=== PATIENT | female | born 1965 | race Asian ===

== ENCOUNTER → 2019-01-03 13:36 | Outpatient (CLI) | payer OTHER, SELFPAY ==
[2019-01-03 14:35] LABS: Add Manual Diff / Slide Review NO; Basophils Absolute Auto 100 /uL (0-100); Basophils Percent Auto 1.4 % (0-2); Eosinophils Absolute Auto 100 /uL (0-450); Eosinophils Percent Auto 1.7 % (2-4); Hemoglobin 13.9 g/dL (12.0-16.0); Lymphocytes Absolute Auto 1900 /uL (1100-4500); Lymphocytes Percent Auto 29.2 % (25-40); Mean Corpuscular Volume 85.4 fL (80-100); Monocytes Absolute Auto 400 /uL (0-900); Monocytes Percent Auto 6.9 % (3-14); Neutrophils Absolute Auto 3900 /uL (1500-7000); Neutrophils Percent Auto 60.8 % (50-75); Platelet Count 223 X10^3/uL (150-400); Red Cell Distribution Width 12.8 % (11.6-14.8); White Blood Cell Count 6.4 X10^3/uL (4.5-11.0)
[2019-01-03 14:50] LABS: Alanine Aminotransferase 21 IU/L (9-52); Albumin 4.5 g/dL (3.5-5.0); Albumin Globulin Ratio 1.4 (1.0-2.8); Alkaline Phosphatase 79 U/L (38-126); Aspartate Aminotransferase 21 IU/L (14-36); Bilirubin Total 0.7 mg/dL (0.2-1.3); Blood Urea Nitrogen 13 mg/dL (7-17); Calcium 9.6 mg/dL (8.4-10.2); Carbon Dioxide 29 mmol/L (22-32); Chloride 103 mmol/L (98-107); Cholesterol 130 mg/dL (140-199); Estimated Glomerular Filt Rate > 60.0 mL/min (>60); Globulin 3.3 g/dL (1.7-4.1); Glucose 101 mg/dL (70-100); HDL Cholesterol 44 mg/dL (40-60); HEMOLYSIS < 15 (0-50); LDL Cholesterol Calculated 73 mg/dL (<100); Potassium 3.8 mmol/L (3.4-5.1); Sodium 141 mmol/L (137-145); Total Protein 7.8 g/dL (6.3-8.2); Triglycerides 63 mg/dL (35-150)
[2019-01-03 16:19] LABS: Thyroid Stimulating Hormone 0.69 uIU/mL (0.47-4.68)
== END ==
PROVIDERS: PCP Family Medicine; Visit Provider Family Medicine
DX: Z00.00 Encounter for general adult medical examination without abnormal findings (principal); E78.5 Hyperlipidemia, unspecified
CPT/HCPCS: 36415; 80053; 80061; 84443; 85025

== ENCOUNTER → 2020-04-29 14:06 | Outpatient (CLI) | payer OTHER, SELFPAY ==
[2020-04-29 14:43] LABS: Add Manual Diff / Slide Review NO; Basophils Absolute Auto 100 /uL (0-100); Basophils Percent Auto 0.7 % (0-2); Eosinophils Absolute Auto 100 /uL (0-450); Eosinophils Percent Auto 1.6 % (2-4); Hematocrit 42.2 % (36-46); Lymphocytes Absolute Auto 2200 /uL (1100-4500); Lymphocytes Percent Auto 29.7 % (25-40); Mean Corpuscular HGB Conc 33.2 % (30-36); Mean Corpuscular Hemoglobin 28.6 PG (26-34); Monocytes Absolute Auto 600 /uL (0-900); Monocytes Percent Auto 7.6 % (3-14); Neutrophils Absolute Auto 4500 /uL (1500-7000); Neutrophils Percent Auto 60.4 % (50-75); Platelet Count 247 X10^3/uL (150-400); Red Blood Cell Count 4.91 X10^6/uL (4.0-5.2); Red Cell Distribution Width 12.8 % (11.6-14.8); White Blood Cell Count 7.4 X10^3/uL (4.5-11.0)
[2020-04-29 15:20] LABS: Alanine Aminotransferase 19 IU/L (<35); Albumin 4.4 g/dL (3.5-5.0); Albumin Globulin Ratio 1.5 (1.0-2.8); Alkaline Phosphatase 68 U/L (38-126); Aspartate Aminotransferase 20 IU/L (14-36); BUN Creatinine Ratio 21.7 (6-22); Bilirubin Total 0.7 mg/dL (0.2-1.3); Blood Urea Nitrogen 13 mg/dL (7-17); Calcium 9.5 mg/dL (8.4-10.2); Carbon Dioxide 34 mmol/L (22-32); Chloride 105 mmol/L (98-107); Cholesterol 122 mg/dL (140-199); Estimated Glomerular Filt Rate > 60.0 mL/min (>60); Glucose 102 mg/dL (70-100); HDL Cholesterol 43 mg/dL (40-60); HEMOLYSIS < 15 (0-50); LDL Cholesterol Calculated 63 mg/dL (<100); Potassium 5.2 mmol/L (3.4-5.1); Sodium 142 mmol/L (137-145); Total Protein 7.4 g/dL (6.3-8.2); Triglycerides 79 mg/dL (35-150)
[2020-04-29 15:48] LABS: Thyroid Stimulating Hormone 0.611 uIU/mL (0.47-4.68)
== END ==
PROVIDERS: PCP Family Medicine; Referring Provider Family Medicine; Visit Provider Family Medicine
DX: Z00.00 Encounter for general adult medical examination without abnormal findings (principal); Z13.29 Encounter for screening for other suspected endocrine disorder; E78.2 Mixed hyperlipidemia
CPT/HCPCS: 36415; 80053; 80061; 84443; 85025

== ENCOUNTER → 2020-10-22 16:06 | Outpatient (CLI) | payer OTHER, SELFPAY ==
[2020-10-22 16:24] LABS: Add Manual Diff / Slide Review NO; Basophils Absolute Auto 100 /uL (0-100); Basophils Percent Auto 0.9 % (0-2); Eosinophils Absolute Auto 200 /uL (0-450); Eosinophils Percent Auto 1.9 % (2-4); Hematocrit 42.7 % (36-46); Lymphocytes Absolute Auto 2400 /uL (1100-4500); Lymphocytes Percent Auto 28.5 % (25-40); Mean Corpuscular HGB Conc 32.8 % (30-36); Mean Corpuscular Hemoglobin 28.2 PG (26-34); Mean Corpuscular Volume 85.8 fL (80-100); Monocytes Absolute Auto 600 /uL (0-900); Monocytes Percent Auto 7.3 % (3-14); Neutrophils Absolute Auto 5200 /uL (1500-7000); Neutrophils Percent Auto 61.4 % (50-75); Platelet Count 246 X10^3/uL (150-400); Red Blood Cell Count 4.97 X10^6/uL (4.0-5.2); Red Cell Distribution Width 13.2 % (11.6-14.8); White Blood Cell Count 8.5 X10^3/uL (4.5-11.0)
[2020-10-22 16:35] LABS: Alanine Aminotransferase 17 IU/L (<35); Albumin 4.7 g/dL (3.5-5.0); Albumin Globulin Ratio 1.3 (1.0-2.8); Alkaline Phosphatase 70 U/L (38-126); Aspartate Aminotransferase 23 IU/L (14-36); BUN Creatinine Ratio 20.7 (6-22); Bilirubin Total 0.4 mg/dL (0.2-1.3); Bilirubin Unconjugated 0.4 mg/dL (0.0-1.1); Blood Urea Nitrogen 12 mg/dL (7-17); Calcium 9.7 mg/dL (8.4-10.2); Carbon Dioxide 31 mmol/L (22-32); Chloride 105 mmol/L (98-107); Estimated Glomerular Filt Rate > 60.0 mL/min (>60); Globulin 3.5 g/dL (1.7-4.1); Glucose 99 mg/dL (70-100); HEMOLYSIS < 15 (0-50); Potassium 4.2 mmol/L (3.4-5.1); Sodium 143 mmol/L (137-145); Total Protein 8.2 g/dL (6.3-8.2)
== END ==
PROVIDERS: Registered Nurse; PCP Family Medicine; Referring Provider Family Medicine; Visit Provider Family Medicine
DX: R10.9 Unspecified abdominal pain (principal)
CPT/HCPCS: 36415; 80053; 80076; 85025

== ENCOUNTER → 2020-11-01 13:37 | Outpatient (CLI) | payer OTHER, SELFPAY ==
--- NOTE | 2020-11-01 | DI.US.S_ITS ---
PROCEDURE: US ABDOMEN LIMITED INDICATIONS: RUQ PAIN TECHNIQUE: Real-time focused scanning was performed of the abdomen, with image documentation. COMPARISON: [facility], CT, IVP (ABD & PEL WWO CONTRAST), 07/11/2012, 12:50. FINDINGS: The liver is normal in size and demonstrates normal echogenicity. The main portal vein demonstrates normal size and demonstrates normal appearing, hepatopetal flow. There is a 6 mm hyperechoic focus seen, which likely relates to a hemangioma, particularly given the prior CT appearance. No findings of gallstones or sludge are seen. The gallbladder wall is not thickened, measuring 3 mm or less. No specific pericholecystic fluid is seen. The sonographic Osei sign is negative. There is no biliary dilatation, the common bile duct measures 3 mm. No significant pancreatic abnormality is seen on these images. IMPRESSION: The gallbladder demonstrates a normal sonographic appearance. No biliary dilatation is seen. 6 mm presumed liver hemangioma seen. Dictated by: Jian Arzola M.D. on 11/01/2020 at 13:04 Approved by: Jian Arzola M.D. on 11/01/2020 at 13:07
== END ==
PROVIDERS: PCP Family Medicine; Referring Provider Family Medicine; Visit Provider Family Medicine
DX: R10.11 Right upper quadrant pain (principal)
CPT/HCPCS: 76705

== ENCOUNTER → 2021-08-22 16:34 | Outpatient (CLI) | payer OTHER, SELFPAY ==
--- NOTE | 2021-08-22 16:36 | DI.RAD.S_ITS ---
PROCEDURE: XR KNEE LT 3V INDICATIONS: L knee pain TECHNIQUE: 3 views of the knee were acquired. COMPARISON: None. FINDINGS: Bones: No fractures or dislocations. No suspicious bony lesions. Age-appropriate bony degenerative changes are seen. On the sunrise view, there is moderate patellofemoral joint space narrowing seen. Osteophyte formation can be seen along the margins of the patella. Soft tissues: No joint effusion. No suspicious soft tissue calcifications. IMPRESSION: Degenerative changes are seen, which are worst involving the patellofemoral joint. If it would be helpful for clinical management decision making, please consider a dedicated, scheduled knee MRI for further evaluation (assuming that there is no contraindication). Dictated by: Jian Arzola M.D. on 08/22/2021 at 15:52 Approved by: Jian Arzola M.D. on 08/22/2021 at 15:53
== END ==
PROVIDERS: PCP Family Medicine; Referring Provider Physician Assistant; Visit Provider Physician Assistant
DX: M25.562 Pain in left knee (principal)
CPT/HCPCS: 73562

== ENCOUNTER 2022-09-12 16:38 | Emergency (ER) | payer OTHER, SELFPAY ==
[2022-09-12 16:55] VITALS: BP 172/93; PULSE 90; RESP 16; TEMP 36.6; O2SAT 100; BMI 26.2
[2022-09-12 17:42] LABS: Amorphous Sediment Urine 1+; Bacteria Urine Many (>30); Culture Indicated Urine Specimen Cultured; Mucus Urine 1+ (Negative); RBC Urine 1-5/HPF (0-5/HPF); Squamous Epithelial Cell Urine 1-5 /HPF (0-5/HPF); WBC Urine 10-30/HPF (0-5/HPF)
--- NOTE | 2022-09-12 18:31 | ED_ITS ---
HPI - General Adult General Chief complaint: Abdominal Pain Stated complaint: sent by MD for fever x 5 days Time Seen by Provider: 09/12/22 16:44 Source: patient Mode of arrival: Ambulatory Limitations: no limitations History of Present Illness HPI narrative: Patient is a 57-year-old female who for the past 5 days has had fevers. She states she has taken antipyretic medications which improves her symptoms but th en they returned. She is having urinary frequency. She denies chest pain. No shortness of breath. No back pain. No abdominal pain. No change in bowel habits. No skin rashes. Neck pain. No sore throat. Has taken Tylenol and ibuprofen. Was sent by her primary doctor for evaluation. Related Data Previous Rx's Medication Instructions Recorded atorvastatin 20 mg tablet 20 mg PO BEDTIME #90 tabs 07/26/22 cephalexin 500 mg capsule 500 mg PO BID 7 days #14 caps 09/12/22 Allergies Allergy/AdvReac Type Severity Reaction Status Date / Time Sulfa (Sulfonamide Allergy Mild HIVES Verified 07/13/22 15:24 Antibiotics) Review of Systems Review of Systems ROS Unobtainable: All systems reviewed & are unremarkable except as noted in HPI and below Patient History Medical History Gastroesophageal reflux disease (~2020) Left knee pain Preventative health care Surgical History Anesthesia History of breast surgery (~1986) Family History Father Diabetes mellitus History of heart disease Hypertension Mother Stroke Diabetes mellitus Hyperlipidemia Hypertension Brother Diabetes mellitus History of heart disease Brother Diabetes mellitus Sister Diabetes mellitus Sister Diabetes mellitus Social History Smoking Status: Never smoker alcohol intake: current (1 drink per month ) substance use type: does not use Smoking Status: Never smoker alcohol intake frequency: a few times a week Substance Use Type: does not use Exam Initial Vital Signs Initial Vital Signs: Vital Signs Temperature 97.9 F 09/12/22 16:55 Pulse Rate 90 09/12/22 16:55 Respiratory Rate 16 09/12/22 16:55 Blood Pressure 172/93 H 09/12/22 16:55 Pulse Oximetry 100 09/12/22 16:55 Oxygen Delivery Method 09/12/22 16:55 Const General: cooperative HENNC Head: normal to inspection and normocephalic Resp Effort & Inspection: normal respiratory effort Cardio Rate: regular rate GI Inspection: normal to inspection and non-distended Skin General: no rashes or lesions noted Neuro General: patient alert, patient awake and moves all extremities Course Orders Ordered: Discontinued Medications Cephalexin HCl (Cephalexin 250 Mg Capsule) 500 mg PO NOW ONE Stop: 09/12/22 18:33 Last Admin: 09/12/22 18:37 Dose: 500 mg Documented By: YAZMIN Vital Signs Vital signs: Vital Signs - 8 hr 09/12/22 16:55 Temperature 97.9 F Pulse Rate 90 Respiratory Rate 16 Blood Pressure 172/93 H Pulse Oximetry 100 Oxygen Delivery Method Room Air Medical Decision Making Lab Data Labs: Lab Results 09/12/22 Range/Units 17:05 Urine RBC 1-5/hpf (0-5/HPF) Urine WBC 10-30/hpf H (0-5/HPF) Ur Squamous Epith Cells 1-5 /hpf (0-5/HPF) Amorphous Sediment 1+ Urine Bacteria Many (>30) H (None) Urine Mucus 1+ H (Negative) Ur Culture Indicated? Specimen cultured Urine Dip Bedside Urine Glucose 250 mg/dl Bedside Urine Bilirubin - Negative Bedside Urine Ketone - Negative Urine Specific [place] 1.020 Bedside Urine Occult Blood +++ Bedside Urine pH 6.0 Bedside Urine Protein +/- 15 Bedside Urine Urobilinogen - Negative Bedside Urine Nitrite - Negative Bedside Urine Leukocytes - Negative Esterase Point of care testing: Urine Dip Bedside Urine Glucose 250 mg/dl Bedside Urine Bilirubin - Negative Bedside Urine Ketone - Negative Urine Specific [place] 1.020 Bedside Urine Occult Blood +++ Bedside Urine pH 6.0 Bedside Urine Protein +/- 15 Bedside Urine Urobilinogen - Negative Bedside Urine Nitrite - Negative Bedside Urine Leukocytes - Negative Esterase MDM Narrative Medical decision making narrative: Patient is having fevers at home. Urinalysis does show signs of urinary tract infection. I have low suspicion for pyelonephritis based on her presentation. She is not toxic-appearing. Tolerated antibiotics here in the ER. Prescription for antibiotics was sent to the pharmacy of her choice. Considered other potential sources of infection however clinically does not have pneumonia comes cellulitis, upper respiratory infection or an acute surgical intra-abdominal infection such as appendicitis. Will hold on further radiologic studies for now. Discharge patient home with strict return precautions. She expressed understanding and agreement. Discharge Plan Departure Patient Disposition: Home Clinical Impression: Urinary tract infection Instructions: DI for Urinary Tract Infection (UTI) Activity Restrictions/Additional Instructions: I do recommend that you take the antibiotics as directed. The prescription was electronically transmitted to [facility] pharmacy. A urine culture was pending at the time of your discharge and we will contact you if we need to change any antibiotics. Return to the emergency department for any new or worsening symptoms. Prescriptions: New cephalexin 500 mg capsule 500 mg PO BID 7 Days Qty: 14 0RF No Action atorvastatin 20 mg tablet 20 mg PO BEDTIME Qty: 90 1RF Referrals: Dalton Vásquez DO [Primary Care Provider] - Stand Alone Forms: Patient Portal/API
[2022-09-12 18:35] VITALS: PULSE 91; O2SAT 99
[2022-09-12 18:36] VITALS: BP 149/80; PULSE 94; O2SAT 99
[2022-09-12] MEDS: cephALEXin 250 MG CAPSULE 500 MG PO (18:37)
== END 2022-09-12 18:43 | disposition home or self-care (01) ==
PROVIDERS: Emergency Medicine; Emergency Provider Emergency Medicine; PCP Family Medicine
DX: N39.0 Urinary tract infection, site not specified (principal)
CPT/HCPCS: 81003; 81015; 87077; 87086; 87186; 99283

== ENCOUNTER → 2022-09-13 14:55 | Outpatient (CLI) | payer OTHER, SELFPAY ==
[2022-09-13 15:33] LABS: Add Manual Diff / Slide Review NO; Basophils Absolute Auto 100 /uL (0-100); Basophils Percent Auto 0.8 % (0-2); Eosinophils Absolute Auto 100 /uL (0-450); Eosinophils Percent Auto 0.8 % (2-4); Hematocrit 40.7 % (36-46); Hemoglobin 13.4 g/dL (12.0-16.0); Lymphocytes Absolute Auto 2000 /uL (1100-4500); Lymphocytes Percent Auto 19.5 % (25-40); Mean Corpuscular Hemoglobin 28.3 PG (26-34); Mean Corpuscular Volume 85.7 fL (80-100); Monocytes Absolute Auto 1000 /uL (0-900); Monocytes Percent Auto 9.7 % (3-14); Neutrophils Absolute Auto 7200 /uL (1500-7000); Neutrophils Percent Auto 69.2 % (50-75); Platelet Count 262 X10^3/uL (150-400); Red Blood Cell Count 4.74 X10^6/uL (4.0-5.2); Red Cell Distribution Width 12.6 % (11.6-14.8); White Blood Cell Count 10.5 X10^3/uL (4.5-11.0)
== END ==
PROVIDERS: PCP Family Medicine; Referring Provider Family Medicine; Visit Provider Family Medicine
DX: R10.31 Right lower quadrant pain (principal)
CPT/HCPCS: 36415; 85025

== ENCOUNTER → 2022-09-14 15:48 | Outpatient (CLI) | payer OTHER, SELFPAY ==
[2022-09-14 17:21] LABS: Hematocrit 38.9 % (36-46); Hemoglobin 12.8 g/dL (12.0-16.0); Mean Corpuscular HGB Conc 32.9 % (30-36); Mean Corpuscular Hemoglobin 28.1 PG (26-34); Mean Corpuscular Volume 85.5 fL (80-100); Platelet Count 288 X10^3/uL (150-400); Red Blood Cell Count 4.55 X10^6/uL (4.0-5.2)
[2022-09-14 17:45] LABS: Hemoglobin A1C% w Est Avg Glu 6.4 % (4.0-6.0)
[2022-09-14 17:54] LABS: BUN Creatinine Ratio 13.3 (6-22); Blood Urea Nitrogen 11 mg/dL (7-17); Calcium 9.3 mg/dL (8.4-10.2); Carbon Dioxide 28 mmol/L (22-32); Chloride 103 mmol/L (98-107); Estimated Glomerular Filt Rate > 60 mL/min (>60); Glucose 147 mg/dL (70-100); HEMOLYSIS < 15 (0-50); Potassium 3.9 mmol/L (3.4-5.1); Sodium 142 mmol/L (137-145)
== END ==
PROVIDERS: PCP Family Medicine; Referring Provider Nurse Practitioner Family; Visit Provider Nurse Practitioner Family
DX: R81 Glycosuria (principal); N39.0 Urinary tract infection, site not specified
CPT/HCPCS: 36415; 80048; 83036; 85027

== ENCOUNTER → 2022-12-05 14:13 | Outpatient (CLI) | payer OTHER, SELFPAY ==
--- NOTE | 2022-12-05 14:14 | DI.MG.S_ITS ---
BILATERAL DIGITAL SCREENING MAMMOGRAM 3D/2D WITH CAD: 12/05/2022 CLINICAL: Routine screening. Family history of breast cancer. Comparison is made to exams dated: 06/28/2015 mammogram - [facility] and 03/03/2011 mammogram - [facility]. Both breasts are heterogeneously dense, which may obscure small masses (category c / 51-75% glandular tissue). Current study was also evaluated with a Computer Aided Detection (CAD) system. No significant masses, calcifications, or other findings are seen in either breast. There has been no significant interval change. IMPRESSION: NEGATIVE There is no mammographic evidence of malignancy. A 1 year screening mammogram is recommended. Based on the Tyrer Cuzick model (a risk assessment model) the patient's lifetime risk is 11.1% and her 10 year risk is 3.9%. According to the ACR, ACS, and NCCN guidelines, an annual breast MRI exam along with mammogram is recommended if the patient's lifetime risk is 20% or greater. This exam was interpreted at Station ID: [id number]. NOTE: For mammograms, a report in lay terms will be sent to the patient. Approximately 15% of breast malignancies will not be visualized mammographically. In the management of a palpable breast mass, a negative mammogram must not discourage biopsy of a clinically suspicious lesion. Electronically Signed By: Yuly galindo/dasha:12/05/2022 16:50:53 letter sent: Normal Exam ACR BI-RADS Category 1: Negative [id number]
== END ==
PROVIDERS: PCP Family Medicine; Referring Provider Family Medicine; Visit Provider Family Medicine
DX: Z12.31 Encounter for screening mammogram for malignant neoplasm of breast (principal); Z80.3 Family history of malignant neoplasm of breast
CPT/HCPCS: 77063; 77067

== ENCOUNTER → 2022-12-20 13:24 | Outpatient (CLI) | payer OTHER, SELFPAY ==
[2022-12-21 08:13] LABS: Labcorp Hemoglobin (Hb) A1c 6.1 % (4.8-5.6)
== END ==
PROVIDERS: Nurse Practitioner Family; PCP Family Medicine; Referring Provider Family Medicine; Visit Provider Family Medicine
DX: R73.03 Prediabetes (principal)
CPT/HCPCS: 36415; 83036

== ENCOUNTER → 2023-08-28 14:30 | Outpatient (CLI) | payer OTHER, SELFPAY ==
[2023-08-28 15:33] LABS: Alanine Aminotransferase 22 IU/L (<35); Albumin 4.6 g/dL (3.5-5.0); Albumin Globulin Ratio 1.4 (1.0-2.8); Alkaline Phosphatase 81 U/L (38-126); Aspartate Aminotransferase 23 IU/L (14-36); BUN Creatinine Ratio 24.1 (6-22); Bilirubin Total 0.7 mg/dL (0.2-1.3); Blood Urea Nitrogen 13 mg/dL (7-17); Calcium 9.7 mg/dL (8.4-10.2); Carbon Dioxide 28 mmol/L (22-32); Chloride 103 mmol/L (98-107); Cholesterol 154 mg/dL (140-199); Estimated Glomerular Filt Rate > 60 mL/min (>60); Globulin 3.2 g/dL (1.7-4.1); Glucose 108 mg/dL (70-100); HDL Cholesterol 53 mg/dL (40-60); HEMOLYSIS 16 (0-50); LDL Cholesterol Calculated 82 mg/dL (<100); Potassium 4.1 mmol/L (3.4-5.1); Sodium 140 mmol/L (137-145); Total Protein 7.8 g/dL (6.3-8.2); Triglycerides 94 mg/dL (35-150)
== END ==
PROVIDERS: PCP Family Medicine; Referring Provider Family Medicine; Visit Provider Family Medicine
DX: E78.5 Hyperlipidemia, unspecified (principal)
CPT/HCPCS: 36415; 80053; 80061

== ENCOUNTER → 2023-08-28 16:32 | Outpatient (CLI) | payer OTHER, SELFPAY ==
--- NOTE | 2023-08-28 16:36 | DI.RAD.S_ITS ---
PROCEDURE: XR SHOULDER RT MIN 2V INDICATIONS: R shoulder pain TECHNIQUE: 3 views of the shoulder were acquired. COMPARISON: None. FINDINGS: Bones: No fractures or dislocations. Mild acromioclavicular joint osteoarthritic changes are seen with joint space narrowing and subchondral sclerosis. No suspicious bony lesions. Visualized ribs appear intact. Soft tissues: No suspicious soft tissue calcifications. IMPRESSION: Mild acromioclavicular joint osteoarthritis. No shoulder fracture or dislocation. No gross soft tissue abnormalities. Dictated by: Tony Romero M.D. on 08/28/2023 at 16:59 Approved by: Tony Romero M.D. on 08/28/2023 at 17:00
== END ==
LOC: RAD 16:33
PROVIDERS: PCP Family Medicine; Referring Provider Family Medicine; Visit Provider Family Medicine
DX: M75.81 Other shoulder lesions, right shoulder (principal); M19.011 Primary osteoarthritis, right shoulder
CPT/HCPCS: 73030

== ENCOUNTER 2023-09-27 15:21 | Observation (INO) | payer OTHER, SELFPAY ==
[2023-09-27 15:27] VITALS: BP 184/91; PULSE 74; RESP 18; TEMP 36.9; O2SAT 99; BMI 25.7
[2023-09-27 16:53] LABS: Bacteria Urine Many (>30); RBC Urine 0-1/HPF (0-5/HPF); Squamous Epithelial Cell Urine 5-10 /HPF (0-5/HPF); Urine Volume 10mL (spun); WBC Urine 5-10/HPF (0-5/HPF)
[2023-09-27 16:54] LABS: Amorphous Sediment Urine 3+; Culture Indicated Urine Specimen Cultured
[2023-09-27 16:57] LABS: Add Manual Diff / Slide Review NO; Basophils Absolute Auto 100 /uL (0-100); Basophils Percent Auto 0.9 % (0-2); Eosinophils Absolute Auto 100 /uL (0-450); Eosinophils Percent Auto 1.3 % (2-4); Hematocrit 42.3 % (36-46); Hemoglobin 14.1 g/dL (12.0-16.0); Lymphocytes Absolute Auto 2000 /uL (1100-4500); Lymphocytes Percent Auto 21.8 % (25-40); Mean Corpuscular HGB Conc 33.4 % (30-36); Mean Corpuscular Hemoglobin 28.6 PG (26-34); Mean Corpuscular Volume 85.6 fL (80-100); Monocytes Absolute Auto 500 /uL (0-900); Monocytes Percent Auto 5.4 % (3-14); Neutrophils Absolute Auto 6500 /uL (1500-7000); Neutrophils Percent Auto 70.6 % (50-75); Platelet Count 263 X10^3/uL (150-400); Red Blood Cell Count 4.94 X10^6/uL (4.0-5.2); Red Cell Distribution Width 13.3 % (11.6-14.8); White Blood Cell Count 9.2 X10^3/uL (4.5-11.0)
--- NOTE | 2023-09-27 17:05 | DI.CT.S_ITS ---
PROCEDURE: CT ABDOMEN PELVIS W CON INDICATIONS: Abd pain zainab-umb and RLQ tenderness TECHNIQUE: After the administration of intravenous contrast, axial sections acquired from the lung bases to the pubic symphysis. Coronal and sagittal reformats were performed. For radiation dose reduction, the following was used: automated exposure control, adjustment of mA and/or kV according to patient size. COMPARISON: None. FINDINGS: Image quality: Diagnostic Lower chest: Unremarkable. Mildly patulous distal esophagus. Normal heart size. Liver: Unremarkable Gallbladder and biliary system: Unremarkable, nondilated Pancreas: Suspected fatty cleft at the tail and body, no discrete lesion. No ductal dilation. Spleen: Nonenlarged Adrenals: No discrete nodule over 1 cm. There may be small nodular thickening. Kidneys: Subcentimeter lesions are too small to characterize, possibly cysts. No hydronephrosis. Vessels and lymph nodes: There are prominent pelvic veins. The main portal vein is patent. No abdominal aortic aneurysm or pathologic lymph nodes by size criteria. Bowel and peritoneum: No evidence of small bowel obstruction. No drainable abscess or pathologic ascites. There are few colonic diverticula. Moderately distended mid and distal appendix. Body wall: Unremarkable Pelvis: Prominent pelvic veins. Reproductive organs are not well evaluated on limited CT evaluation, no gross abnormality. Bladder is unremarkable. Bones: No acute or suspicious osseous finding. There are degenerative changes. IMPRESSION: Acute appendicitis. Prominent pelvic veins can be seen with pelvic congestion. No abscess. Other findings above. Dictated by: Marcin Marion M.D. on 09/27/2023 at 18:36 Approved by: Marcin Marion M.D. on 09/27/2023 at 18:40
--- NOTE | 2023-09-27 17:07 | ED.ABDPAIN ---
HPI - Abdominal Pain <Miesha Diaz PA-C - Last Filed: 09/27/23 20:00> General Chief Complaint: Abdominal Pain Stated Complaint: abd pain Time Seen by Provider: 09/27/23 16:47 Source: patient Mode of arrival: Ambulatory History of Present Illness HPI narrative: This is a 58-year-old woman with history of GERD and hyperlipidemia, Bain's esophagus, who works nights who says that she started having abdominal pain this morning around 8:00 a.m. she describes it as an 8/10 generalized constant aching pain around her belly button but also feels it elsewhere in her abdomen. She states she has had pain similar to this though not so painful previously when she was traveling internationally but took an omeprazole which improved it. She does have a history of GERD but has not had pain this bad before or in this location before. She states she has been having a little bit of issues with constipation recently but yesterday evening had a normal bowel movement. Denies diarrhea or vomiting she has been having some nausea and has reduced appetite. She denies fevers, chills, chest pain back pain, dysuria or any other symptoms. Related Data Home Medications Medication Instructions Recorded Confirmed meloxicam 15 mg tablet 15 mg PO DAILY PRN Pain (Scale 09/27/23 09/27/23 Score 1-3) Previous Rx's Medication Instructions Recorded atorvastatin 20 mg tablet 20 mg PO BEDTIME #90 tabs 09/17/23 Allergies Allergy/AdvReac Type Severity Reaction Status Date / Time Sulfa (Sulfonamide Allergy Mild HIVES Verified 09/17/23 15:54 Antibiotics) Review of Systems <Miesha Diaz PA-C - Last Filed: 09/27/23 20:00> Review of Systems Narrative: See HPI Patient History <Miesha Diaz PA-C - Last Filed: 09/27/23 20:00> Medical History Adhesive capsulitis of right shoulder Prediabetes Right rotator cuff tendinitis Right tennis elbow Left knee pain Preventative health care Gastroesophageal reflux disease (~2020) Surgical History Anesthesia History of breast surgery (~1986) Family History Father Diabetes mellitus History of heart disease Hypertension Mother Stroke Diabetes mellitus Hyperlipidemia Hypertension Brother Diabetes mellitus History of heart disease Brother Diabetes mellitus Sister Diabetes mellitus Sister Diabetes mellitus Social History household members: spouse and children Smoking Status: Never smoker alcohol intake: current substance use type: does not use Smoking Status: Never smoker alcohol intake frequency: a few times a week Substance Use Type: does not use Exam <Miesha Diaz PA-C - Last Filed: 09/27/23 20:00> Narrative Exam Narrative: GENERAL: [58] year old patient appears stated age. Well-developed patient, in mild distress. HEAD: Atraumatic. Normocephalic. EYES: Pupils equal round and reactive. Extraocular motions intact. No scleral icterus. No injection or drainage. ENT: Nose without bleeding, purulent drainage. Airway patent. NECK: Trachea midline. CARDIOVASCULAR: Regular rate and rhythm without murmurs, gallops, or rubs. RESPIRATORY: Clear to auscultation. Breath sounds equal bilaterally. No wheezes, rales, or rhonchi. GASTROINTESTINAL: Abdomen soft, there is [id number] generalized tenderness patient has positive Rovsing sign and positive McBurney's point tenderness, positive obturator sign and positive mild pain with percussion over right lower quadrant and periumbilical region. Otherwise Non-tender, nondistended. EXTREMITIES: No edema or joint tenderness. BACK: Nontender without deformity or crepitance. No flank tenderness. NEURO: AOx3. SKIN: No rash or erythema of visible areas Initial Vital Signs Initial Vital Signs: Vital Signs Temperature 98.4 F 09/27/23 15:27 Pulse Rate 74 09/27/23 15:27 Respiratory Rate 18 09/27/23 15:27 Blood Pressure 184/91 H 09/27/23 15:27 Pulse Oximetry 99 09/27/23 15:27 Oxygen Delivery Method Room Air 09/27/23 15:27 <Isabella Anand MD - Last Filed: 09/28/23 04:51> Initial Vital Signs Initial Vital Signs: Vital Signs Temperature 98.4 F 09/27/23 15:27 Pulse Rate 74 09/27/23 15:27 Respiratory Rate 18 09/27/23 15:27 Blood Pressure 184/91 H 09/27/23 15:27 Pulse Oximetry 99 09/27/23 15:27 Oxygen Delivery Method Room Air 09/27/23 15:27 Course <Miesha Diaz PA-C - Last Filed: 09/27/23 20:00> Course Course Narrative: Dr. Mcnally, on-call surgeon called back and accepts the patient under observation. 1956 Decision to Admit Date: 09/27/23 Decision to Admit time: 18:45 Orders Ordered: ED Orders 09/27/23 20:06 Education, smoking cessation ONGOING Acetaminophen (Acetaminophen 325 Mg Tablet) 650 mg PO Q6H PRN PRN Reason: Fever/Mild Pain (1-3) Hydromorphone HCl (Hydromorphone 0.5 Mg Inj) 0.5 mg IV Q2H PRN PRN Reason: Pain, Severe (7-10) Last Admin: 09/27/23 22:58 Dose: 0.5 mg Documented By: Dextrose/Sodium Chloride (Dextrose 5%-0.45% Ns) 1,000 mls @ 100 mls/hr IV CONT DARIUS Last Admin: 09/27/23 23:02 Dose: 100 mls/hr Documented By: Piperacillin Sod/Tazobactam (Sod 3.375 gm/ Sodium Chloride) 100 mls @ 25 mls/hr IV Q8H DARIUS Stop: 09/28/23 06:59 Last Admin: 09/28/23 04:20 Dose: 25 mls/hr Documented By: Ibuprofen (Ibuprofen 600 Mg Tablet) 600 mg PO Q6H PRN PRN Reason: Fever/Mild Pain (1-3) Naloxone HCl (Naloxone 0.4 Mg/Ml Vial) 0.2 mg IV Q2MIN PRN PRN Reason: Opiate Reversal Ondansetron HCl (Ondansetron 4 Mg/2 Ml Inj) 4 mg IV NOW PRN PRN Reason: Nausea And Vomiting Ondansetron HCl (Ondansetron 4 Mg Odt) 4 mg PO NOW PRN PRN Reason: Nausea And Vomiting Oxycodone HCl (Oxycodone Ir 5 Mg Tablet) 5 mg PO Q3H PRN PRN Reason: Pain, Moderate (4-6) Discontinued Medications Hydromorphone HCl (Hydromorphone 0.5 Mg Inj) 0.2 mg IV NOW ONE Stop: 09/27/23 17:06 Last Admin: 09/27/23 17:30 Dose: 0.2 mg Documented By: MURIEL Piperacillin Sod/Tazobactam (Sod 4.5 gm/ Sodium Chloride) 100 mls @ 200 mls/hr IV NOW ONE Stop: 09/27/23 18:57 Last Infusion: 09/27/23 20:00 Dose: Infused Documented By: Admin: 09/27/23 19:24 Dose: 200 mls/hr Documented By: MURIEL Pantoprazole Sodium (Pantoprazole 40 Mg Vial) 40 mg IV NOW ONE Stop: 09/27/23 18:40 Last Admin: 09/27/23 18:45 Dose: 40 mg Documented By: MURIEL Vital Signs Vital signs: Vital Signs - 8 hr 09/27/23 15:27 09/27/23 18:32 Temperature 98.4 F 98.1 F Pulse Rate 74 62 Respiratory Rate 18 Blood Pressure 184/91 H 160/84 H Pulse Oximetry 99 99 Oxygen Delivery Method Room Air Room Air <Isabella Anand MD - Last Filed: 09/28/23 04:51> Orders Ordered: ED Orders 09/27/23 20:06 Education, smoking cessation ONGOING Acetaminophen (Acetaminophen 325 Mg Tablet) 650 mg PO Q6H PRN PRN Reason: Fever/Mild Pain (1-3) Hydromorphone HCl (Hydromorphone 0.5 Mg Inj) 0.5 mg IV Q2H PRN PRN Reason: Pain, Severe (7-10) Last Admin: 09/27/23 22:58 Dose: 0.5 mg Documented By: DANETTE Dextrose/Sodium Chloride (Dextrose 5%-0.45% Ns) 1,000 mls @ 100 mls/hr IV CONT DARIUS Last Admin: 09/27/23 23:02 Dose: 100 mls/hr Documented By: DANETTE Piperacillin Sod/Tazobactam (Sod 3.375 gm/ Sodium Chloride) 100 mls @ 25 mls/hr IV Q8H DARIUS Stop: 09/28/23 06:59 Last Admin: 09/28/23 04:20 Dose: 25 mls/hr Documented By: DANETTE Ibuprofen (Ibuprofen 600 Mg Tablet) 600 mg PO Q6H PRN PRN Reason: Fever/Mild Pain (1-3) Naloxone HCl (Naloxone 0.4 Mg/Ml Vial) 0.2 mg IV Q2MIN PRN PRN Reason: Opiate Reversal Ondansetron HCl (Ondansetron 4 Mg/2 Ml Inj) 4 mg IV NOW PRN PRN Reason: Nausea And Vomiting Ondansetron HCl (Ondansetron 4 Mg Odt) 4 mg PO NOW PRN PRN Reason: Nausea And Vomiting Oxycodone HCl (Oxycodone Ir 5 Mg Tablet) 5 mg PO Q3H PRN PRN Reason: Pain, Moderate (4-6) Discontinued Medications Hydromorphone HCl (Hydromorphone 0.5 Mg Inj) 0.2 mg IV NOW ONE Stop: 09/27/23 17:06 Last Admin: 09/27/23 17:30 Dose: 0.2 mg Documented By: MURIEL Piperacillin Sod/Tazobactam (Sod 4.5 gm/ Sodium Chloride) 100 mls @ 200 mls/hr IV NOW ONE Stop: 09/27/23 18:57 Last Infusion: 09/27/23 20:00 Dose: Infused Documented By: Admin: 09/27/23 19:24 Dose: 200 mls/hr Documented By: MURIEL Pantoprazole Sodium (Pantoprazole 40 Mg Vial) 40 mg IV NOW ONE Stop: 09/27/23 18:40 Last Admin: 09/27/23 18:45 Dose: 40 mg Documented By: MURIEL Vital Signs Vital signs: Vital Signs - 8 hr 09/27/23 15:27 09/27/23 18:32 Temperature 98.4 F 98.1 F Pulse Rate 74 62 Respiratory Rate 18 Blood Pressure 184/91 H 160/84 H Pulse Oximetry 99 99 Oxygen Delivery Method Room Air Room Air MDM - Abdominal Pain <Miesha Diaz PA-C - Last Filed: 09/27/23 20:00> Differential Diagnosis Differential diagnosis: Likely abdominal pain, acute appendicitis, constipation, diverticulitis and pancreatitis Medical Records Attestation: I reviewed the patient's medical records. Lab Data Attestation: I reviewed the patient's lab results. 09/27/23 16:28 09/27/23 16:28 Labs: Lab Results 09/27/23 09/27/23 Range/Units 15:30 16:28 WBC 9.2 (4.5-11.0) X10^3/uL RBC 4.94 (4.0-5.2) X10^6/uL Hgb 14.1 (12.0-16.0) g/dL Hct 42.3 (36-46) % MCV 85.6 (80-100) fL MCH 28.6 (26-34) PG MCHC 33.4 (30-36) % RDW 13.3 (11.6-14.8) % Plt Count 263 (150-400) X10^3/uL Neut % (Auto) 70.6 (50-75) % Lymph % (Auto) 21.8 L (25-40) % [place] % (Auto) 5.4 (3-14) % Eos % (Auto) 1.3 L (2-4) % Baso % (Auto) 0.9 (0-2) % Neut # (Auto) 6500 (5940-5659) /uL Lymph # (Auto) 2000 (5854-7063) /uL [place] # (Auto) 500 (0-900) /uL Eos # (Auto) 100 (0-450) /uL Baso # (Auto) 100 (0-100) /uL Sodium 140 (137-145) mmol/L Potassium 3.7 (3.4-5.1) mmol/L Chloride 106 (98-107) mmol/L Carbon Dioxide 29 (22-32) mmol/L BUN 10 (7-17) mg/dL Creatinine 0.56 (0.52-1.04) mg/dL Estimated GFR > 60 (>60) mL/min BUN/Creatinine Ratio 17.9 (6-22) Glucose 115 H (70-100) mg/dL Calcium 9.3 (8.4-10.2) mg/dL Total Bilirubin 0.8 (0.2-1.3) mg/dL AST 29 (14-36) IU/L ALT 21 (<35) IU/L Alkaline Phosphatase 94 (38-126) U/L Total Protein 8.6 H (6.3-8.2) g/dL Albumin 4.8 (3.5-5.0) g/dL Globulin 3.8 (1.7-4.1) g/dL Albumin/Globulin Ratio 1.3 (1.0-2.8) Lipase 67 (23-300) U/L Urine RBC 0-1/hpf (0-5/HPF) Urine WBC 5-10/hpf H (0-5/HPF) Ur Squamous Epith Cells 5-10 /hpf H (0-5/HPF) Amorphous Sediment 3+ Urine Bacteria Many (>30) H (None) Ur Culture Indicated? Specimen cultured Vol Urine Centrifuged 10ml (spun) Point of care testing: Urine Dip Bedside Urine Glucose Negative Bedside Urine Bilirubin - Negative Bedside Urine Ketone - Negative Urine Specific [place] 1.015 Bedside Urine Occult Blood - Negative Bedside Urine pH 7.5 Bedside Urine Protein +/- 15 Bedside Urine Leukocytes + [address] scan - abdomen/pelvis: My Impression: Agree with Radiology interpretation Radiologist's Impression: [address] [address] [address] Scan Report Signed Patient: Lisa Guzman MR#: [id number] : 1965 Acct:[id number] Age/Sex: 58 / F Date of Service: 09/27/23 Loc: ED Accession Number: [id number] Procedure: CT abdomen pelvis w con Ordering Provider: Miesha Diaz P.A-C PROCEDURE: CT ABDOMEN PELVIS W CON INDICATIONS: Abd pain zainab-umb and RLQ tenderness TECHNIQUE: After the administration of intravenous contrast, axial sections acquired from the lung bases to the pubic symphysis. Coronal and sagittal reformats were performed. For radiation dose reduction, the following was used: automated exposure control, adjustment of mA and/or kV according to patient size. COMPARISON: None. FINDINGS: Image quality: Diagnostic Lower chest: Unremarkable. Mildly patulous distal esophagus. Normal heart size. Liver: Unremarkable Gallbladder and biliary system: Unremarkable, nondilated Pancreas: Suspected fatty cleft at the tail and body, no discrete lesion. No ductal dilation. Spleen: Nonenlarged Adrenals: No discrete nodule over 1 cm. There may be small nodular thickening. Kidneys: Subcentimeter lesions are too small to characterize, possibly cysts. No hydronephrosis. Vessels and lymph nodes: There are prominent pelvic veins. The main portal vein is patent. No abdominal aortic aneurysm or pathologic lymph nodes by size criteria. Bowel and peritoneum: No evidence of small bowel obstruction. No drainable abscess or pathologic ascites. There are few colonic diverticula. Moderately distended mid and distal appendix. Body wall: Unremarkable Pelvis: Prominent pelvic veins. Reproductive organs are not well evaluated on limited CT evaluation, no gross abnormality. Bladder is unremarkable. Bones: No acute or suspicious osseous finding. There are degenerative changes. IMPRESSION: Acute appendicitis. Prominent pelvic veins can be seen with pelvic congestion. No abscess. Other findings above. Dictated by: Marcin Marion M.D. on 09/27/2023 at 18:36 Approved by: Marcin Marion M.D. on 09/27/2023 at 18:40 ECG Data Attestation: I personally reviewed and interpreted this ECG as follows: Interpretation: Normal sinus rhythm no ectopy or ST changes noted. Heart rate 67 Treatment and Disposition Shared decision making:: Shared decision-making was used to determine plan for evaluation today in the emergency department plan for admission. MDM Narrative Medical decision making narrative: This is a 58-year-old woman with a history of hyperlipidemia, Bain's esophagus and GERD who presents to the ER today with concern for abdominal pain 8/10 constant and aching since this morning around 8:00 a.m., periumbilical but on exam patient has positive McBurney's point tenderness and other signs suggestive of appendicitis. Given her history of GERD do also treat with pantoprazole IV and she was given 0.2 mg Dilaudid which improves her pain. She also received Zofran. Labs ordered and based on exam imaging is ordered prior to return of labs. Labs are fairly unremarkable with no leukocytosis however her CT scan does come back positive for a acute appendicitis. Zosyn IV is ordered and orders for NPO after midnight. Surgery is consulted regarding this patient with plan for admission. Surgery accepts the patient under obs. <Isabella Anand MD - Last Filed: 09/28/23 04:51> Lab Data Labs: Lab Results 09/27/23 09/27/23 Range/Units 15:30 16:28 WBC 9.2 (4.5-11.0) X10^3/uL RBC 4.94 (4.0-5.2) X10^6/uL Hgb 14.1 (12.0-16.0) g/dL Hct 42.3 (36-46) % MCV 85.6 (80-100) fL MCH 28.6 (26-34) PG MCHC 33.4 (30-36) % RDW 13.3 (11.6-14.8) % Plt Count 263 (150-400) X10^3/uL Neut % (Auto) 70.6 (50-75) % Lymph % (Auto) 21.8 L (25-40) % Dolores % (Auto) 5.4 (3-14) % Eos % (Auto) 1.3 L (2-4) % Baso % (Auto) 0.9 (0-2) % Neut # (Auto) 6500 (0373-8399) /uL Lymph # (Auto) 2000 (9964-7837) /uL [place] # (Auto) 500 (0-900) /uL Eos # (Auto) 100 (0-450) /uL Baso # (Auto) 100 (0-100) /uL Sodium 140 (137-145) mmol/L Potassium 3.7 (3.4-5.1) mmol/L Chloride 106 (98-107) mmol/L Carbon Dioxide 29 (22-32) mmol/L BUN 10 (7-17) mg/dL Creatinine 0.56 (0.52-1.04) mg/dL Estimated GFR > 60 (>60) mL/min BUN/Creatinine Ratio 17.9 (6-22) Glucose 115 H (70-100) mg/dL Calcium 9.3 (8.4-10.2) mg/dL Total Bilirubin 0.8 (0.2-1.3) mg/dL AST 29 (14-36) IU/L ALT 21 (<35) IU/L Alkaline Phosphatase 94 (38-126) U/L Total Protein 8.6 H (6.3-8.2) g/dL Albumin 4.8 (3.5-5.0) g/dL Globulin 3.8 (1.7-4.1) g/dL Albumin/Globulin Ratio 1.3 (1.0-2.8) Lipase 67 (23-300) U/L Urine RBC 0-1/hpf (0-5/HPF) Urine WBC 5-10/hpf H (0-5/HPF) Ur Squamous Epith Cells 5-10 /hpf H (0-5/HPF) Amorphous Sediment 3+ Urine Bacteria Many (>30) H (None) Ur Culture Indicated? Specimen cultured Vol Urine Centrifuged 10ml (spun) Point of care testing: Urine Dip Bedside Urine Glucose Negative Bedside Urine Bilirubin - Negative Bedside Urine Ketone - Negative Urine Specific [place] 1.015 Bedside Urine Occult Blood - Negative Bedside Urine pH 7.5 Bedside Urine Protein +/- 15 Bedside Urine Leukocytes + 70 Esterase Discharge Plan Departure Patient Disposition: Admitted as Observation Clinical Impression: Acute appendicitis Qualifiers: Acute appendicitis type: unspecified acute appendicitis type Qualified Code(s): K35.80 - Unspecified acute appendicitis Admit Date/Time: 09/27/23 21:24 Admit Provider: Dimas Mcnally ED Sign-out <Isabella Anand MD - Last Filed: 09/28/23 04:51> Cosign ED Attending Cosignature Attestation: I did not see this patient. I was available all times for consultation.
[2023-09-27 17:24] LABS: Alanine Aminotransferase 21 IU/L (<35); Albumin 4.8 g/dL (3.5-5.0); Albumin Globulin Ratio 1.3 (1.0-2.8); Alkaline Phosphatase 94 U/L (38-126); Aspartate Aminotransferase 29 IU/L (14-36); BUN Creatinine Ratio 17.9 (6-22); Bilirubin Total 0.8 mg/dL (0.2-1.3); Blood Urea Nitrogen 10 mg/dL (7-17); Calcium 9.3 mg/dL (8.4-10.2); Carbon Dioxide 29 mmol/L (22-32); Chloride 106 mmol/L (98-107); Estimated Glomerular Filt Rate > 60 mL/min (>60); Globulin 3.8 g/dL (1.7-4.1); Glucose 115 mg/dL (70-100); HEMOLYSIS < 15 (0-50); Lipase 67 U/L (23-300); Potassium 3.7 mmol/L (3.4-5.1); Sodium 140 mmol/L (137-145); Total Protein 8.6 g/dL (6.3-8.2)
[2023-09-27] MEDS: HYDROMORPHONE 0.5 MG INJ 0.2 MG IV (17:30)
[2023-09-27 18:32] VITALS: BP 160/84; PULSE 62; TEMP 36.7; O2SAT 99
[2023-09-27] MEDS: PANTOPRAZOLE 40 MG VIAL IV (18:45)
[2023-09-27] MEDS: PIPERACILLIN/TAZO 4.5 GM in SODIUM CHLORIDE 0.9% 100 ML IV (19:24)
[2023-09-27 22:16] VITALS: BP 151/74; PULSE 78; RESP 22; TEMP 36.7; O2SAT 100
[2023-09-27 22:22] VITALS: BP 166/87; PULSE 80; RESP 16; TEMP 37.6; O2SAT 99
[2023-09-27 22:25] VITALS: BMI 25.7
[2023-09-27] MEDS: HYDROMORPHONE 0.5 MG INJ IV (22:58)
[2023-09-27] MEDS: DEXTROSE 5%-0.45% NS 1,000 ML 100 ML IV (23:02)
[2023-09-28] VITALS (21 sets, daily range): BP systolic 119–154; BP diastolic 54–88; PULSE 54–76; RESP 12–18; TEMP 36.1–37.3; O2SAT 96–100; BMI 25.7
--- NOTE | 2023-09-28 | PATH_ITS ---
[facility] Accession Number: [id number] No. of containers..01 Tissue . 01 Material submitted: . appendix - APPENDIX . 01 Diagnosis: APPENDIX: Acute appendicitis with severe suppurative/fibrinous serositis. Negative for dysplasia and malignancy. MNT 10/02/2023 1524 Local . 01 Electronically signed: . Imelda Mena MD, Pathologist NPI- [id number] . 01 Gross description: . The specimen is received in formalin labeled with the patient's name, , and appendix, and consists of an fay vermiform appendix measuring 6.7 cm in length by 1.4 cm in average diameter with fay, smooth serosa and a small amount of attached adipose. The margin is inked blue, and sectioning reveals a patent lumen averaging 0.3 cm in diameter, with fay intact ward that average 0.4 cm thick with no lesions grossly identified. Washer Repairman sections to include the margin, one-half of the bisected distal tip, and cross-section are submitted in cassette A1. ([id number]) /YUE 10/02/2023 1524 Local . 01 Pathologist provided ICD-10: K35.80 . 01 CPT . 949134 Specimen Comment: A courtesy copy of this report has been sent to [phone] Performed at: 01 [facility] [address] [place] [address], [place], [place] [id number] MD Josias Waddell MD Phone: [phone]
[2023-09-28] MEDS: PIPERACILLIN/TAZO 3.375 GM in SODIUM CHLORIDE 0.9% 100 ML IV (04:20)
[2023-09-28] MEDS: ACETAMINOPHEN 325 MG TABLET 650 MG PO ×2 (08:35→18:08)
[2023-09-28] MEDS: HYDROMORPHONE 0.5 MG INJ IV ×2 (08:36→22:16)
[2023-09-28] MEDS: DEXTROSE 5%-0.45% NS 1,000 ML 100 ML IV (13:14)
--- NOTE | 2023-09-28 14:16 | CM.DANOTE ---
Initial DCP Assessment Visit Note Reviewed EMR and team rounds for status updates. Met with pt/spouse at bedside and introduced self and role, pt was found to be resting quietly in bed, was able to participate in brief assessment questions and express preferences for home d/c. Pt resides independently with spouse in their own home in [place]. Spouse will plan to transport pt home once she's medically cleared for d/c. Payor: [facility] Attending: Dr. Mcnally Pt is a 58 year-old F who presented to the ED yesterday evening by private vehicle after she began experiencing worsening abdominal pain since that morning. She has a PMH of GERD and Bain's Esophagus. CT of Abd./Pelvis in the ED was positive for acute appendicitis. IV Zosyn and fluids were started, pt was made NPO and placed in OBS in preparation for an appendectomy. Surgery is scheduled for later this afternoon, pt will likely stay overnight for post-surgical monitoring. No anticipated home d/c needs are identified at this time, but DCP will continue to follow and assist with any further evolving d/c needs. Discharge Planning/Care Management CM Discharge Assessment Start: 09/28/23 14:05 Freq: Status: Active Protocol: Document 09/28/23 14:05 DPL (Rec: 09/28/23 14:16 DPL [id number]) Discharge Planning Assessment Assigned Straightening Press Operator ELIO Faith Advance Directives? No History Provided By Patient,Medical Record Has Patient been admitted in last 30 No days? Prior Living Arrangements House Household Members spouse,children Type of transporation used prior to Drives own vehicle admit Independent with ADL's Yes Is patient alert and oriented? Yes Caregiver for Another No Comment No identified home d/c needs identified at this time. Barriers to Discharge No Discharge Plan Home Transportation Arrangement Spouse Referrals Initiated None needed Whiteboard Updated in Patient Room with Yes name and ext. # of Straightening Press Operator Review Status In Process Please Provide Date Initial DC 09/28/23 Assessment Was Performed
[2023-09-28] MEDS: LACTATED RINGERS 1,000 ML 42 ML IV (16:51)
--- NOTE | 2023-09-28 17:00 | P.HP_ITS ---
History of Present Illness History of Present Illness Date Patient Seen: 09/28/23 Time Patient Seen: 17:00 Chief complaint: abd pain Narrative: Lisa is a 58-year-old woman with a history of prediabetes who presented to the [facility] Emergency Department with complaint of abdominal pain. Several days of vague abdominal pain which became severe yesterday primarily in the lower abdomen. Associated nausea no emesis or fever. At admission to the emergency department white blood cell count 9 remainder of her laboratory studies are unremarkable. CT abdomen pelvis demonstrate acute appendicitis without abscess. Previous abdominal surgery includes tubal ligation. [facility] Medical History Adhesive capsulitis of right shoulder Prediabetes Right rotator cuff tendinitis Right tennis elbow Left knee pain Preventative health care Gastroesophageal reflux disease (~2020) Surgical History Anesthesia History of breast surgery (~1986) Family History Father Diabetes mellitus History of heart disease Hypertension Mother Stroke Diabetes mellitus Hyperlipidemia Hypertension Brother Diabetes mellitus History of heart disease Brother Diabetes mellitus Sister Diabetes mellitus Sister Diabetes mellitus Social History household members: spouse and children Smoking Status: Never smoker alcohol intake: current substance use type: does not use Meds Home Medications and Allergies Home Medications Medication Instructions Recorded Confirmed Type atorvastatin 20 mg tablet 20 mg PO BEDTIME #90 tabs 09/17/23 09/27/23 Rx meloxicam 15 mg tablet 15 mg PO DAILY PRN Pain (Scale 09/27/23 09/27/23 History Score 1-3) Allergies Allergy/AdvReac Type Severity Reaction Status Date / Time Sulfa (Sulfonamide Allergy Mild HIVES Verified 09/17/23 15:54 Antibiotics) Exam Vital Signs (past 8 hours): - 09/28/23 09:23 09/28/23 11:40 09/28/23 13:16 Temperature 97.8 F Pulse Rate 67 Respiratory Rate 18 Blood Pressure 119/67 Pulse Oximetry 97 97 97 Oxygen Delivery Method Room Air Room Air Oxygen Flow Rate 0 09/28/23 15:00 03/08/24 16:40 Temperature 97.5 F L 98.2 F Pulse Rate 70 70 Respiratory Rate 16 16 Blood Pressure 126/62 136/88 Pulse Oximetry 100 98 Oxygen Delivery Method Room Air Oxygen Flow Rate 0 Oxygen Delivery Method Room Air Oxygen Flow Rate 0 Narrative Exam Narrative: GENERAL: A well nourished, well developed adult woman, resting comfortably, in no acute distress. HEENT: Normocephalic, atraumatic. No scleral icterus CHEST: Rising symmetrically. No audible wheezes CARDIOVASCULAR: Warm and well perfused. Regular rate ABDOMEN: Tender right lower quadrant. No peritonitis. EXTREMITIES: Normal tone and without edema. NEUROLOGIC: Moving all extremities spontaneously. No gross motor deficits. Objective Labs 09/27/23 16:28 09/27/23 16:28 Labs: Laboratory Results - last 24 hr 09/27/23 16:28 WBC 9.2 RBC 4.94 Hgb 14.1 Hct 42.3 MCV 85.6 MCH 28.6 MCHC 33.4 RDW 13.3 Plt Count 263 Neut % (Auto) 70.6 Lymph % (Auto) 21.8 L [place] % (Auto) 5.4 Eos % (Auto) 1.3 L Baso % (Auto) 0.9 Neut # (Auto) 6500 Lymph # (Auto) 2000 [place] # (Auto) 500 Eos # (Auto) 100 Baso # (Auto) 100 Sodium 140 Potassium 3.7 Chloride 106 Carbon Dioxide 29 BUN 10 Creatinine 0.56 Estimated GFR > 60 BUN/Creatinine Ratio 17.9 Glucose 115 H Calcium 9.3 Total Bilirubin 0.8 AST 29 ALT 21 Alkaline Phosphatase 94 Total Protein 8.6 H Albumin 4.8 Globulin 3.8 Albumin/Globulin Ratio 1.3 Lipase 67 Assessment & Plan Assessment and plan (1) Acute appendicitis: Qualifiers: Acute appendicitis type: unspecified acute appendicitis type Qualified Code(s): K35.80 - Unspecified acute appendicitis Status: Acute Assessment & Plan narrative: Lisa is a 58-year-old woman H prediabetes with symptoms and radiographic findings consistent with acute appendicitis. I personally reviewed her CT abdomen pelvis which demonstrates acute appendicitis without abscess or fecalith. I discussed with the patient and her therapy options including appendectomy and non operative antibiotic therapy. Following discussion her preference is to proceed with appendectomy. An overview of the operation was discussed. Operative risks including hemorrhage, infection, leak from staple line, damage to surrounding structures were reviewed. Questions have been answered and she is in agreement with this plan. She provides her consent to proceed.
--- NOTE | 2023-09-28 17:06 | PC.NURSE ---
Day shift Pt off unit and transported to surgery @ 1537.
--- NOTE | 2023-09-28 17:11 | SUR.OPER ---
Supine on padded OR bed, head on pillow, right arm secured on padded arm board at <90 degrees abduction,left arm tucked at patients side. legs uncrossed, safety belt at thigh, tape over blanket over lower legs.
[2023-09-28] MEDS: CEFAZOLIN VIAL 1 GM in SODIUM CHLORIDE 0.9% 100 ML IV (17:57)
[2023-09-28] MEDS: BUPIVACAINE 0.25% (PF) VIAL 30 ML INJ (18:15)
--- NOTE | 2023-09-28 18:37 | P.OP_ITS ---
Operative Date/Time/Diagnoses Date of procedure: 09/28/23 Time of procedure: 18:37 Pre-op diagnosis: Acute appendicitis Post-op diagnosis: same Procedure & Clinicians Procedure: Laparoscopic appendectomy Same procedure as scheduled: Yes Indications: Symptoms and radiographic findings consistent with acute appendicitis Surgeon: Dimas Mcnally Click Yes if Unassisted: Yes Anesthesia Type: General Operative Notes Findings: Acute appendicitis without perforation Specimen(s): other (Appendix) Estimated Blood Loss (mL): 50 Procedure in detail: Patient was brought to the operating room placed supine on the table. Bilateral lower extremity compression devices were applied. Anesthesia was induced and they intubated with an endotracheal tube. They received 3.375 g of Zosyn prior to skin incision. The left arm was tucked and appropriately padded. They were prepped and draped in sterile fashion. Time-out was performed. An infraumbilical incision was made the umbilical stalk was grasped and elevated and incision was made and the abdomen was entered atraumatically. A 12 mm balloon trocar was then placed through the incision and pneumoperitoneum of 14 mm Hg was established. The scope was then inserted and the abdomen inspected, there was no evidence of injury upon entry. Two 5 mm ports were placed under direct visualization, one in the left lower quadrant and second in the lower midline. A thorough laparoscopic evaluation was performed inspecting all four quadrants. The appendix was visualized it was acutely inflamed but not perforated. The patient was then tilted right side up. The small bowel was then swept to the upper aspect of the abdomen. The tenie were followed to the base of the cecum where the appendix was identified. It was acutely inflamed but not perforated. The appendix was grasped and a window within the mesentery was made at the base of the appendix using the [place] dissector with care to avoid injuring the cecum. The mesoappendix was then divided using the endo-stapler with a staple length of 2.5 mm-white load. The mesenteric staple line was i nspected for hemostasis. The appendix was then amputated flush at the cecum using the endo-stapler blue load. The specimen was retrieved using a endoscopic retrieval bag through the 10 mm infra-umbilical port. The 5 mm ports were then removed under direct visualization. The umbilical fascial incision was closed with 0 Vicryl in a figure-eight fashion. The skin wounds were irrigated and closed with 4-0 Monocryl followed by the application of Dermabond. Sponge instrument count at the end of the operation was correct. The patient tolerated procedure well was extubated and transferred to the postoperative care unit in stable condition. Complications: none Post-operative Condition: stable Disposition: same day surgery
[2023-09-28] MEDS: OXYCODONE IR 5 MG TABLET PO (18:55)
[2023-09-29] MEDS: OXYCODONE IR 5 MG TABLET PO ×2 (03:38→10:56)
[2023-09-29 04:30] VITALS: BP 120/52; PULSE 95; RESP 16; TEMP 36.9; O2SAT 98
[2023-09-29 06:00] VITALS: O2SAT 98
[2023-09-29 08:00] VITALS: BP 92/50; PULSE 68; RESP 20; TEMP 36.6; O2SAT 97
[2023-09-29 10:00] VITALS: O2SAT 97
[2023-09-29] MEDS: ACETAMINOPHEN 325 MG TABLET 650 MG PO (10:57)
--- NOTE | 2023-09-29 11:47 | CM.DPC ---
DCP Cont. Reviewed EMR and team rounds for pt's status updates. Pt was having low blood pressure earlier today, will likely d/c home with spouse transporting once surgery has rounded on her. Left Dr. Mcnally a message asking for clarification.
[2023-09-29 12:00] VITALS: BP 120/64; PULSE 64; RESP 19; TEMP 36.4; O2SAT 98
--- NOTE | 2023-09-29 13:42 | PM.DS.1 ---
History of Present Illness History of Present Illness Date Patient Seen: 09/29/23 Time Patient Seen: 13:42 Chief complaint: abd pain Discharge Providers Provider Date of admission: 09/27/23 21:24 Discharge Date: 09/29/23 Primary care physician: Dalton Vásquez DO Consults: 09/27/23 18:57 Consult to General Surgery Stat Comment: Consulting Provider: Dimas Mcnally Reason for consultation: acute appendicitis Discharge provider: Waldemar Jackson MD Summary Hospital Course Discharge Diagnosis: Acute appendicitis Hospital Course: Patient had a laparoscopic appendectomy by Dr. Magaña on 09/28/2023. She was discharged on postop day 1. Exam Vital Signs (past 8 hours): - 09/29/23 06:00 09/29/23 08:00 09/29/23 09:50 Temperature 97.8 F Pulse Rate 68 Respiratory Rate 20 Blood Pressure 92/50 L Pulse Oximetry 98 97 Oxygen Delivery Method Room Air Room Air Oxygen Flow Rate 0 09/29/23 10:00 09/29/23 12:00 Temperature 97.6 F Pulse Rate 64 Respiratory Rate 19 Blood Pressure 120/64 Pulse Oximetry 97 98 Oxygen Delivery Method Room Air Oxygen Flow Rate 0 Oxygen Delivery Method Room Air Oxygen Flow Rate 0 Objective Labs 09/27/23 16:28 09/27/23 16:28 [facility] Medical History Adhesive capsulitis of right shoulder Prediabetes Right rotator cuff tendinitis Right tennis elbow Left knee pain Preventative health care Gastroesophageal reflux disease (~2020) Surgical History Anesthesia History of breast surgery (~1986) Family History Father Diabetes mellitus History of heart disease Hypertension Mother Stroke Diabetes mellitus Hyperlipidemia Hypertension Brother Diabetes mellitus History of heart disease Brother Diabetes mellitus Sister Diabetes mellitus Sister Diabetes mellitus Social History household members: spouse and children Smoking Status: Never smoker alcohol intake: current substance use type: does not use Discharge Plan Discharge Plan Patient Disposition: Home Provider Discharge Comment: No lifting greater than 20 lb for 2 weeks. If you do not hear from [facility] by Sunday contact [facility] at [phone] to arrange a follow up appointment with Dr. Mcnally. Discharge orders & Medications Prescriptions: New acetaminophen [Tylenol] 325 mg capsule 650 mg PO QID PRN (Reason: pain) Qty: 60 0RF docusate sodium [Colace] 100 mg capsule 100 mg PO BID Qty: 30 0RF hydrocodone-acetaminophen 5-325 mg tablet 1 tab PO Q8H PRN (Reason: pain) Qty: 10 0RF Continued atorvastatin 20 mg tablet 20 mg PO BEDTIME Qty: 90 1RF Discontinued meloxicam 15 mg tablet 15 mg PO DAILY PRN (Reason: Pain (Scale Score 1-3)) Follow up/Referrals: Dalton Vásquez, [Primary Care Provider] - Visit Report/Discharge Packet Stand Alone Forms: Patient Portal/API, Stroke Signs & Symptoms Discharge Data Primary Care Provider: Dalton Vásquez Attending Provider: Dimas Mcnally Admit Date/Time: 09/27/23 21:24
--- NOTE | 2023-09-29 15:37 | PC.NURSE ---
Pt discharged home at 1525, escorted off floor in wheelchair accompanied by spouse and hospital staff. IV removed, discharge teaching completed including new medications, follow up appointments and wound care. Questions answered and concerns addressed. Patient left the floor with all belongings.
--- NOTE | 2023-10-12 07:39 | PC.NURSE ---
Late Entry: Piperacillin infusion initiated 09/27 at 0420 complete at 0821.
== END 2023-09-29 15:39 | disposition home or self-care (01) ==
LOC: ED 20:55 → AC 21:28
PROVIDERS: Emergency Medicine; Admitting Provider Surgery; Emergency Provider Student in an Organized Health Care Education/Training Program; PCP Family Medicine; Referring Provider Student in an Organized Health Care Education/Training Program; Visit Provider Surgery
PROC: 0DTJ4ZZ Resection of Appendix, Percutaneous Endoscopic Approach (ICD-10-PCS; CPT 44970; principal; 2023-09-28 18:00)
DX: K35.80 Unspecified acute appendicitis (principal)
CPT/HCPCS: 44970; 36415; 74177; 80053; 81003; 81015; 83690; 85025; 87077; 87086; 87186; 93005; 93010; 96365; 96366; 96375; 96376; 99222; 99284; G0378; C9113; J0330; J0690; J1100; J1170; J1885; J2405; J2543; J2704; J3010; Q9967

== ENCOUNTER → 2023-12-31 15:37 | Outpatient (CLI) | payer OTHER, SELFPAY ==
--- NOTE | 2023-12-31 15:39 | DI.MRI.S_ITS ---
PROCEDURE: MR SHOULDER RT WO CON INDICATIONS: Unspecified rotator cuff tear or rupture of right TECHNIQUE: Noncontrast oblique coronal T2 fast spin echo with fat saturation, oblique sagittal T1 spin echo and T2 fast spin echo with fat saturation, axial T1 spin echo and T2 fast spin echo with fat saturation through the shoulder. COMPARISON: None. FINDINGS: Image quality: Somewhat limited evaluation given patient motion.. Rotator cuff: In the supraspinatus, there is focal, high-grade, articular sided tear at the most anterior footprint (series 7, image 6). Severe tendinosis of the supraspinatus. There is low grade bursal sided tear at the critical zone of the in the fiber of the supraspinatus (series 7, image 9). The infraspinatus is unremarkable. The teres minor is unremarkable. The subscapularis is unremarkable. No muscle edema or fatty atrophy. Bones and bursae: Mild degenerative change of the acromioclavicular joint. Type 1 acromion. No os acromiale. Mild subacromial/subdeltoid bursitis. Mild subchondral cystic changes seen in the lesser tuberosity, reactive. No acute fracture. No focal chondral defects of the glenohumeral joint. Capsule and soft tissues: Tear of the anterior labrum. The extra-articular biceps tendon is unremarkable. Mild tendinosis of the intra-articular biceps tendon, without tear. No significant glenohumeral effusion. No intra-articular body. IMPRESSION: 1. Severe tendinosis of the supraspinatus with focal high grade tear at the most anterior footprint and low grade bursal sided tear at the mid fiber. 2. Mild degenerative changes of the acromioclavicular joint. Dictated by: Merlyn August M.D. on 01/01/2024 at 20:11 Approved by: Merlyn August M.D. on 01/01/2024 at 20:18
== END ==
PROVIDERS: PCP Family Medicine; Referring Provider Orthopaedic Surgery; Visit Provider Orthopaedic Surgery
DX: M75.111 Incomplete rotator cuff tear or rupture of right shoulder, not specified as traumatic (principal)
CPT/HCPCS: 73221

== ENCOUNTER → 2025-03-02 15:57 | Outpatient (CLI) | payer OTHER, SELFPAY ==
[2025-03-02 18:01] LABS: Add Manual Diff / Slide Review NO; Hematocrit 42.4 % (36-46); Hemoglobin 14.1 g/dL (12.0-16.0); Lymphocytes Absolute Auto 2300 /uL (1100-4500); Mean Corpuscular HGB Conc 33.3 % (30-36); Mean Corpuscular Hemoglobin 28.9 PG (26-34); Mean Corpuscular Volume 86.7 fL (80-100); Platelet Count 262 X10^3/uL (150-400)
[2025-03-02 19:06] LABS: Alanine Aminotransferase 27 IU/L (<35); Albumin 4.4 g/dL (3.5-5.0); Albumin Globulin Ratio 1.5 (1.0-2.8); Alkaline Phosphatase 107 U/L (38-126); Blood Urea Nitrogen 16 mg/dL (7-17); Calcium 9.4 mg/dL (8.4-10.2); Carbon Dioxide 26 mmol/L (22-32); Chloride 105 mmol/L (98-107); Cholesterol 159 mg/dL (140-199); Estimated Glomerular Filt Rate > 60 mL/min (>60); Globulin 3.0 g/dL (1.7-4.1); Glucose 120 mg/dL (70-99); HDL Cholesterol 45 mg/dL (40-60); HEMOLYSIS < 15 (0-50); Potassium 4.4 mmol/L (3.4-5.1); Sodium 141 mmol/L (137-145); Total Protein 7.4 g/dL (6.3-8.2); Triglycerides 83 mg/dL (35-150)
[2025-03-02 20:16] LABS: TSH w/ Reflex to FT4 0.95 uIU/mL (0.47-4.68)
== END ==
PROVIDERS: PCP Family Medicine; Referring Provider Family Medicine; Visit Provider Family Medicine
DX: E78.2 Mixed hyperlipidemia (principal); R73.03 Prediabetes; Z00.00 Encounter for general adult medical examination without abnormal findings
CPT/HCPCS: 36415; 80053; 80061; 84443; 85025